=== PATIENT | male | born 1955 | race Caucasian/White ===

== ENCOUNTER 2020-07-21 11:30 | Outpatient (CLI) | payer BC, OTHER ==
[2020-07-22 06:59] LABS: SARS-CoV-2 PCR by NAA Not Detected (NotDetected)
== END 2020-07-21 11:31 | disposition home or self-care (01) ==
LOC: CSHLAB 11:30
PROVIDERS: ATTEND Internal Medicine Gastroenterology
DX: Z20.822 Contact with and (suspected) exposure to COVID-19 (principal); Z12.11 Encounter for screening for malignant neoplasm of colon
CPT/HCPCS: 87635; U0003; U0005

== ENCOUNTER 2020-07-24 10:31 | Day surgery (SDC) | payer BC ==
[2020-07-24] MEDS ORDERED: Lidocaine 1% MPF 2 ML VIAL ONE (11:04)
[2020-07-24] MEDS ORDERED: PROPOFOL 20 ML ONE (11:48)
[2020-07-24] MEDS ORDERED: Lidocaine 1% PF 5 ML VIAL ONE (11:56)
[2020-07-24] MEDS ORDERED: PHENYLEPHRINE-NS 100 MCG/ML 10 ML SYRINGE ONE (12:10)
== END 2020-07-24 13:00 | disposition home or self-care (01) ==
LOC: CSHSDC 10:31
PROVIDERS: ATTEND Internal Medicine Gastroenterology
DX: Z12.11 Encounter for screening for malignant neoplasm of colon (principal); D12.8 Benign neoplasm of rectum; K57.30 Diverticulosis of large intestine without perforation or abscess without bleeding
CPT/HCPCS: 88305; J2704

== ENCOUNTER 2023-03-14 17:16 | Emergency (ER) | payer BC, OTHER | END 2023-03-14 18:43 | disposition home or self-care (01) | LOC: CSHERS 17:16 | DX: S09.90XA Unspecified injury of head, initial encounter (principal); K21.9 Gastro-esophageal reflux disease without esophagitis; W22.8XXA Striking against or struck by other objects, initial encounter | CPT/HCPCS: 70450 ==

== ENCOUNTER 2024-12-22 12:53 | Emergency (ER) | payer OTHER ==
[2024-12-22] MEDS ORDERED: Fluorescein Opthalmic Strip ONE (13:19)
[2024-12-22] MEDS ORDERED: Proparacaine 0.5% Opth 15 ML BOT ONE (13:19)
== END 2024-12-22 14:12 | disposition home or self-care (01) ==
LOC: CSHERS 12:53
DX: L03.213 Periorbital cellulitis (principal)
CPT/HCPCS: 99283